=== PATIENT | female | born 1935 | race African-American/Black ===

== ENCOUNTER 2020-05-22 17:54 | Emergency (ER) | payer MEDICARE, MEDICAID ==
[~2020-05-22] VITALS: Ht 152.4 cm; Wt 41.0 kg
[~2020-05-22 17:54] MED LIST: ACET650T37; ALPR-392; AMIT10TA6; CARI350T28; IBUP100T20; MECL25TA3; POTA8TAB4; PROM6.2514; SIMV10TA2; TRAM50TA
[2020-05-22 17:59] VITALS: BP 173/50
[2020-05-22] MEDS ORDERED: ONDANSETRON 4MG ODT PO STA (18:55)
== END 2020-05-22 21:15 | disposition left against medical advice (07) ==
LOC: ER 17:54
DX: R55 Syncope and collapse (principal); Z53.21 Procedure and treatment not carried out due to patient leaving prior to being seen by health care provider
CPT/HCPCS: 93005